=== PATIENT | female | born 2000 | race Caucasian/White ===

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

== ENCOUNTER → 2018-06-18 | Outpatient (CLI) | payer OTHER ==
[2018-06-18 09:02] LABS: HEMATOCRIT 46.4 % (37.0-47.0); HEMOGLOBIN 14.3 g/dl (12.0-16.0); MEAN CELL VOLUME 84.4 fl (81.0-99.0); MEAN CORPUSCULAR HGB CONC 30.8 g/dl (33.0-37.0); MEAN PLATELET VOLUME 10.2 fl (9.6-12.3); RED BLOOD COUNT 5.5 10*6/uL (4.10-5.10); RED CELL DISTRI WIDTH 14.1 % (0-14.5); WHITE BLOOD COUNT 14.2 10*3/uL (4.8-10.8)
[2018-06-18 09:35] LABS: ALBUMIN 3.7 gm/dl (3.1-4.5); ALKALINE PHOSPHATASE 89 U/L (45-117); BUN 18 mg/dl (7-24); CHLORIDE 107 mmol/L (98-107); CHOLESTEROL 133 mg/dL (<200); CREATININE 1.04 mg/dL (0.55-1.02); HDL CHOLESTEROL 33 mg/dl (40-60); LDL CHOLESTEROL 70 mg/dL (9-159); POTASSIUM 4.1 mmol/L (3.5-5.1); SGOT/AST 14 IU/L (3-35); SGPT/ALT 24 U/L (12-78); SODIUM 139 mmol/L (136-145); TOTAL PROTEIN 7.6 gm/dL (6.4-8.2); TRIGLYCERIDES 149 mg/dl (<150); VLDL CHOLESTEROL 30 mg/dL (6-40)
== END | disposition home or self-care (01) ==
LOC: LAB 08:18
PROVIDERS: Family Medicine
DX: E78.00 Pure hypercholesterolemia, unspecified (principal); E55.9 Vitamin D deficiency, unspecified; R53.83 Other fatigue; F41.1 Generalized anxiety disorder; E74.00 Glycogen storage disease, unspecified

== ENCOUNTER → 2019-05-22 | Outpatient (CLI) | payer OTHER ==
[2019-05-22 18:22] LABS: HEMATOCRIT 44.7 % (37.0-47.0); HEMOGLOBIN 14.5 g/dl (12.0-16.0); MEAN CELL VOLUME 83.7 fl (81.0-99.0); MEAN CORPUSCULAR HGB 27.2 pg (27.0-31.0); MEAN CORPUSCULAR HGB CONC 32.4 g/dl (33.0-37.0); MEAN PLATELET VOLUME 10.5 fl (9.6-12.3); RED BLOOD COUNT 5.34 10*6/uL (4.10-5.10); WHITE BLOOD COUNT 13.9 10*3/uL (4.8-10.8)
[2019-05-22 18:33] LABS: ALKALINE PHOSPHATASE 80 U/L (45-117); BUN 12 mg/dl (7-24); CHLORIDE 105 mmol/L (98-107); CHOLESTEROL 155 mg/dL (<200); CREATININE 0.94 mg/dL (0.55-1.02); HDL CHOLESTEROL 39 mg/dl (40-60); LDL CHOLESTEROL 89 mg/dL (9-159); POTASSIUM 3.9 mmol/L (3.5-5.1); SGOT/AST 22 IU/L (3-35); SGPT/ALT 40 U/L (12-78); SODIUM 138 mmol/L (136-145); TOTAL PROTEIN 7.8 gm/dL (6.4-8.2); TRIGLYCERIDES 137 mg/dl (<150); VLDL CHOLESTEROL 27 mg/dL (6-40)
== END | disposition home or self-care (01) ==
LOC: LAB 17:41
PROVIDERS: Family Medicine
DX: L70.0 Acne vulgaris (principal); E74.00 Glycogen storage disease, unspecified; F41.1 Generalized anxiety disorder; D72.829 Elevated white blood cell count, unspecified

== ENCOUNTER → 2021-08-24 | Outpatient (CLI) | payer OTHER ==
[2021-08-24 16:29] LABS: HEMATOCRIT 43.4 % (37.0-47.0); MEAN CELL VOLUME 80.1 fl (81.0-99.0); MEAN CORPUSCULAR HGB 25.3 pg (27.0-31.0); MEAN CORPUSCULAR HGB CONC 31.6 g/dl (33.0-37.0); MEAN PLATELET VOLUME 9.7 fl (9.6-12.3); RED BLOOD COUNT 5.42 10*6/uL (4.10-5.10); RED CELL DISTRI WIDTH 15.1 % (0-14.5); WHITE BLOOD COUNT 11.7 10*3/uL (4.8-10.8)
[2021-08-24 16:46] LABS: ALBUMIN 3.9 gm/dl (3.1-4.5); ALKALINE PHOSPHATASE 95 U/L (45-117); BUN 13 mg/dl (7-24); CHLORIDE 108 mmol/L (98-107); CREATININE 0.84 mg/dL (0.55-1.02); FREE T4 0.96 ng/dl (0.76-1.46); POTASSIUM 3.5 mmol/L (3.5-5.1); SGOT/AST 20 IU/L (3-35); SGPT/ALT 40 U/L (12-78); SODIUM 140 mmol/L (136-145)
[2021-08-24 17:52] LABS: VITAMIN D, 25-HYDROXY 22.9 ng/mL (30-100)
== END | disposition home or self-care (01) ==
LOC: LAB 16:14
PROVIDERS: ATTEND Family Medicine
DX: E55.9 Vitamin D deficiency, unspecified (principal)

== ENCOUNTER → 2021-09-08 | Outpatient (CLI) | payer OTHER ==
[2021-09-08 12:02] LABS: BASO # 0.1 10*3/uL (0.0-0.1); BASO % 0.5 % (0.0-1.0); EOS # 0.2 10*3/uL (0.0-0.4); EOS % 1.9 % (1.0-4.0); HEMATOCRIT 42.3 % (37.0-47.0); LYMPH # 3.9 10*3/uL (1.3-4.4); LYMPH % 31.9 % (27.0-41.0); MEAN CELL VOLUME 81.5 fl (81.0-99.0); MEAN CORPUSCULAR HGB 25.6 pg (27.0-31.0); MEAN CORPUSCULAR HGB CONC 31.4 g/dl (33.0-37.0); MEAN PLATELET VOLUME 10.2 fl (9.6-12.3); MONO # 0.6 10*3/uL (0.1-1.0); MONO % 5.1 % (3.0-9.0); NEUT # 7.4 10*3/uL (2.3-7.9); NEUT % 60.3 % (47.0-73.0); PLATELET COUNT AUTOMATED 269 10*3/uL (130-400); RED BLOOD COUNT 5.19 10*6/uL (4.10-5.10); RED CELL DISTRI WIDTH 14.6 % (0-14.5); WHITE BLOOD COUNT 12.2 10*3/uL (4.8-10.8)
== END | disposition home or self-care (01) ==
LOC: LAB 11:27
PROVIDERS: ATTEND Family Medicine
DX: D72.829 Elevated white blood cell count, unspecified (principal)

== ENCOUNTER 2022-05-05 17:35 | Emergency (ER) | payer OTHER ==
[~2022-05-05] VITALS: Ht 170.1 cm; Wt 99.8 kg
[2022-05-05 19:01] LABS: BASO # 0.1 10*3/uL (0.0-0.1); BASO % 0.4 % (0.0-1.0); EOS # 0.2 10*3/uL (0.0-0.4); EOS % 1.1 % (1.0-4.0); HEMATOCRIT 43.6 % (37.0-47.0); LYMPH # 3.9 10*3/uL (1.3-4.4); LYMPH % 28.6 % (27.0-41.0); MEAN CELL VOLUME 82.6 fl (81.0-99.0); MEAN CORPUSCULAR HGB 26.1 pg (27.0-31.0); MEAN CORPUSCULAR HGB CONC 31.7 g/dl (33.0-37.0); MEAN PLATELET VOLUME 10.3 fl (9.6-12.3); MONO # 0.7 10*3/uL (0.1-1.0); MONO % 4.9 % (3.0-9.0); NEUT # 8.8 10*3/uL (2.3-7.9); NEUT % 64.7 % (47.0-73.0); PLATELET COUNT AUTOMATED 258 10*3/uL (130-400); RED BLOOD COUNT 5.28 10*6/uL (4.10-5.10); RED CELL DISTRI WIDTH 14.3 % (0-14.5); WHITE BLOOD COUNT 13.6 10*3/uL (4.8-10.8)
[2022-05-05 19:17] LABS: ALKALINE PHOSPHATASE 95 U/L (45-117); BUN 16 mg/dl (7-24); CHLORIDE 110 mmol/L (98-107); CREATININE 0.86 mg/dL (0.55-1.02); POTASSIUM 3.8 mmol/L (3.5-5.1); SGOT/AST 21 IU/L (3-35); SGPT/ALT 41 U/L (12-78); SODIUM 139 mmol/L (136-145); TOTAL PROTEIN 7.5 gm/dL (6.4-8.2)
[2022-05-05] MEDS ORDERED: NAPROSYN500 MG PO (21:15)
[2022-05-05] MEDS ORDERED: ZANAFLEX4 MG PO (21:15)
[2022-05-05] MEDS ORDERED: MEDROL DOSEPAK4 MG PO (21:15)
== END 2022-05-05 21:27 | disposition home or self-care (01) ==
LOC: ED 17:35
PROVIDERS: Nurse Practitioner Family
DX: M62.838 Other muscle spasm (principal); M54.2 Cervicalgia; M54.50 Low back pain, unspecified

== ENCOUNTER → 2022-05-11 | Outpatient (CLI) | payer OTHER ==
[~2022-05-11] MED LIST: MEDROL DOSEPAK4 MG PO; NAPROSYN500 MG PO; ZANAFLEX4 MG PO
[2022-05-11 09:20] LABS: HEMATOCRIT 45.5 % (37.0-47.0); MEAN CELL VOLUME 83.5 fl (81.0-99.0); MEAN CORPUSCULAR HGB 26.8 pg (27.0-31.0); MEAN CORPUSCULAR HGB CONC 32.1 g/dl (33.0-37.0); RED BLOOD COUNT 5.45 10*6/uL (4.10-5.10); RED CELL DISTRI WIDTH 14.6 % (0-14.5)
[2022-05-11 09:54] LABS: BUN 15 mg/dl (7-24); CHLORIDE 108 mmol/L (98-107); CHOLESTEROL 129 mg/dL (<200); CREATININE 0.95 mg/dL (0.55-1.02); POTASSIUM 3.7 mmol/L (3.5-5.1); SGOT/AST 12 IU/L (3-35); SGPT/ALT 26 U/L (12-78); SODIUM 140 mmol/L (136-145)
[2022-05-11 10:02] LABS: ALKALINE PHOSPHATASE 89 U/L (45-117); LDL CHOLESTEROL 68 mg/dL (9-159); TOTAL PROTEIN 7.4 gm/dL (6.4-8.2); TRIGLYCERIDES 155 mg/dl (<150)
[2022-05-11 10:46] LABS: VITAMIN D, 25-HYDROXY 27.3 ng/mL (30-100)
[2022-05-14 01:06] LABS: TESTOSTERONE FREE, (DIRECT) 0.8 pg/mL (0.0-4.2)
== END | disposition home or self-care (01) ==
LOC: LAB 08:57
PROVIDERS: ATTEND Family Medicine
DX: R53.83 Other fatigue (principal); R63.5 Abnormal weight gain; L70.0 Acne vulgaris; L68.0 Hirsutism

== ENCOUNTER 2022-07-24 13:52 | Emergency (ER) | payer OTHER | END 2022-07-24 17:59 | disposition left against medical advice (07) | LOC: ED 13:52 | DX: Z53.21 Procedure and treatment not carried out due to patient leaving prior to being seen by health care provider (principal) ==

== ENCOUNTER → 2023-01-12 | Outpatient (CLI) | payer OTHER ==
[2023-01-12 11:07] LABS: MEAN CORPUSCULAR HGB 26.8 pg (27.0-31.0); MEAN CORPUSCULAR HGB CONC 32.2 g/dl (33.0-37.0); MEAN PLATELET VOLUME 9.9 fl (9.6-12.3); RED BLOOD COUNT 5.42 10*6/uL (4.10-5.10); RED CELL DISTRI WIDTH 13.6 % (0-14.5); WHITE BLOOD COUNT 9.3 10*3/uL (4.8-10.8)
[2023-01-12 11:37] LABS: ALKALINE PHOSPHATASE 94 U/L (46-116); BUN 12 mg/dl (9-23); CHLORIDE 107 mmol/L (98-107); CHOLESTEROL 113 mg/dL (<200); FREE T4 1.11 ng/dl (0.89-1.76); LDL CHOLESTEROL 65 mg/dL (9-159); POTASSIUM 3.9 mmol/L (3.4-5.1); SGPT/ALT 46 U/L (10-49); THYROID STIM HORMONE (HS) 1.728 uIU/ml (0.550-4.780); TOTAL PROTEIN 7.6 gm/dL (6.0-8.0); TRIGLYCERIDES 88 mg/dl (<150); VITAMIN D, 25-HYDROXY 30.7 ng/mL (30-100)
[2023-01-14 18:06] LABS: TESTOSTERONE FREE, (DIRECT) 1.3 pg/mL (0.0-4.2)
== END | disposition home or self-care (01) ==
LOC: LAB 10:35
PROVIDERS: ATTEND Family Medicine
DX: E78.00 Pure hypercholesterolemia, unspecified (principal); E66.9 Obesity, unspecified; E55.9 Vitamin D deficiency, unspecified; L68.0 Hirsutism; D72.829 Elevated white blood cell count, unspecified; R53.83 Other fatigue